=== PATIENT | female | born 1980 | race Caucasian/White ===

== ENCOUNTER 2023-09-16 14:55 | Outpatient (NON) | payer MEDICARE, SELFPAY ==
[2023-09-16 15:21] LABS: Basophils Absolute Auto 0.04 K/mm3 (0.00-0.10); Basophils Percent Auto 0.9 % (0.0-1.0); Eosinophils Absolute Auto 0.35 K/mm3 (0.02-0.50); Eosinophils Percent Auto 7.6 % (1.0-6.0); Hematocrit 45.2 % (35.0-49.0); Hemoglobin 15.1 g/dL (12.0-15.0); Immature Granulocyte Absolute 0.01 K/mm3 (0.00-0.00); Immature Granulocyte Percent A 0.2 % (0.0-0.0); Lymphocytes Absolute Auto 0.21 K/mm3 (1.10-4.50); Lymphocytes Percent Auto 4.6 % (18.0-42.0); Mean Corpuscular HGB Conc 33.4 g/dL (32.0-36.0); Mean Corpuscular Hemoglobin 29.9 pg (27.0-31.0); Mean Corpuscular Volume 89.5 fL (78.0-102.0); Mean Platelet Volume 10.9 fl (9.2-11.8); Monocytes Absolute Auto 0.48 K/mm3 (0.10-0.90); Monocytes Percent Auto 10.4 % (2.0-11.0); Neutrophils Absolute Auto 3.5 K/mm3 (1.7-7.2); Neutrophils Percent Auto 76.3 % (50.0-70.0); Platelet Count Result 214 K/mm3 (150-420); Red Blood Count 5.05 M/mm3 (4.20-5.40); Red Cell Distribution Width 13.5 % (11.6-14.4); White Blood Count 4.6 K/mm3 (4.8-10.8)
[2023-09-16 15:34] LABS: Alanine Aminotransferase 13 U/L (14-59); Albumin Level 3.7 g/dL (3.4-5.0); Alkaline Phosphatase 95 U/L (46-116); Anion Gap 11 mmol/L (8-16); Aspartate Amino Transferase < 10 U/L (15-37); Bilirubin,Total 0.2 mg/dL (0.00-1.00); Blood Urea Nitrogen 15 mg/dL (7-18); Calcium 9.2 mg/dL (8.5-10.1); Carbon Dioxide 26 mmol/L (21-32); Chloride 110 mmol/L (98-108); Estimated Glomerular Filt Rate > 60; Glucose 71 mg/dL (70-99); Osmolality Calculated 302 mOsm/kg (285-295); Potassium 3.9 mmol/L (3.5-5.1); Sodium 147 mmol/L (136-145); Total Protein 6.3 g/dL (6.4-8.2)
== END 2023-09-16 14:56 | disposition home or self-care (01) ==
LOC: CHSLAB 15:02
DX: Z79.899 Other long term (current) drug therapy (principal)
CPT/HCPCS: 36415; 80053; 84443; 85025

== ENCOUNTER 2024-02-11 15:28 | Outpatient (NON) | payer MEDICARE, SELFPAY ==
[2024-02-11 16:09] LABS: Basophils Absolute Auto 0.07 K/mm3 (0.00-0.10); Basophils Percent Auto 1.7 % (0.0-1.0); Eosinophils Absolute Auto 0.31 K/mm3 (0.02-0.50); Eosinophils Percent Auto 7.3 % (1.0-6.0); Hematocrit 44.9 % (35.0-49.0); Hemoglobin 14.9 g/dL (12.0-15.0); Immature Granulocyte Absolute 0.02 K/mm3 (0.00-0.00); Immature Granulocyte Percent A 0.5 % (0.0-0.0); Lymphocytes Absolute Auto 0.73 K/mm3 (1.10-4.50); Lymphocytes Percent Auto 17.3 % (18.0-42.0); Mean Corpuscular HGB Conc 33.2 g/dL (32-36); Mean Corpuscular Volume 87.5 fL (78.0-102.0); Mean Platelet Volume 10.9 fl (9.2-11.8); Monocytes Absolute Auto 0.55 K/mm3 (0.10-0.90); Neutrophils Absolute Auto 2.55 K/mm3 (1.70-7.20); Neutrophils Percent Auto 60.2 % (50.0-70.0); Platelet Count Result 216 K/mm3 (150-420); Red Blood Count 5.13 M/mm3 (4.20-5.40); Red Cell Distribution Width 12.7 % (11.6-14.4); White Blood Count 4.2 K/mm3 (4.8-10.8)
[2024-02-11 16:31] LABS: Alanine Aminotransferase 26 U/L (14-59); Albumin Level 3.9 g/dL (3.4-5.0); Alkaline Phosphatase 91 U/L (46-116); Anion Gap 10 mmol/L (8-16); Aspartate Amino Transferase 10 U/L (15-37); Bilirubin,Total 0.3 mg/dL (0.00-1.00); Blood Urea Nitrogen 12 mg/dL (7-18); Calcium 8.7 mg/dL (8.5-10.1); Carbon Dioxide 28 mmol/L (21-32); Chloride 106 mmol/L (98-108); Estimated Glomerular Filt Rate > 60; Glucose 68 mg/dL (70-99); Osmolality Calculated 295 mOsm/kg (285-295); Potassium 4.4 mmol/L (3.5-5.1); Sodium 144 mmol/L (136-145); Thyroid Stimulating Hormone 1.26 uIU/mL (0.36-3.74); Total Protein 6.4 g/dL (6.4-8.2)
== END 2024-02-11 15:29 | disposition home or self-care (01) ==
LOC: CHSLAB 15:34
DX: Z79.899 Other long term (current) drug therapy (principal)
CPT/HCPCS: 36415; 80053; 84443; 85025

== ENCOUNTER 2024-04-08 11:00 | Outpatient (NON) | payer MEDICARE, SELFPAY ==
[2024-04-08 11:28] LABS: Hematocrit 47.7 % (35.0-49.0); Hemoglobin 15.4 g/dL (12.0-15.0); Mean Corpuscular HGB Conc 32.3 g/dL (32-36); Mean Corpuscular Hemoglobin 28.3 pg (27.0-31.0); Mean Corpuscular Volume 87.5 fL (78.0-102.0); Mean Platelet Volume 10.9 fl (9.2-11.8); Platelet Count Result 238 K/mm3 (150-420); Red Blood Count 5.45 M/mm3 (4.20-5.40); Red Cell Distribution Width 13.5 % (11.6-14.4); White Blood Count 5.4 K/mm3 (4.8-10.8)
[2024-04-08 11:55] LABS: Alanine Aminotransferase 26 U/L (14-59); Albumin Level 3.8 g/dL (3.4-5.0); Alkaline Phosphatase 82 U/L (46-116); Anion Gap 12 mmol/L (4-12); Aspartate Amino Transferase 19 U/L (15-37); Bilirubin,Total 0.2 mg/dL (0.00-1.00); Blood Urea Nitrogen 11 mg/dL (7-18); Calcium 8.6 mg/dL (8.5-10.1); Carbon Dioxide 22 mmol/L (21-32); Chloride 104 mmol/L (98-108); Estimated Glomerular Filt Rate > 60; Glucose 88 mg/dL (70-99); Osmolality Calculated 284 mOsm/kg (285-295); Sodium 138 mmol/L (136-145); Thyroid Stimulating Hormone 2.21 uIU/mL (0.36-3.74); Total Protein 6.4 g/dL (6.4-8.2)
[2024-04-08 12:00] LABS: Band Neutrophils Percent 0 % (0-6); Basophils Absolute Manual 0.05 K/mm3 (0-0.1); Basophils Percent Manual 1 % (0-1); Eosinophils Absolute Manual 0.81 K/mm3 (0.02-0.50); Eosinophils Percent Manual 15 % (1-6); Lymphocytes Percent Manual 13 % (18-44); Monocytes Absolute Manual 0.64 K/mm3 (0.1-0.90); Monocytes Percent Manual 12 % (3-9); Neutrophils Absolute Manual 3.18 K/mm3 (1.7-7.2); Neutrophils Percent Manual 59 % (46-73); Platelet Estimate Adequate (Adequate); Total Cells Counted 100
== END 2024-04-08 11:01 | disposition home or self-care (01) ==
LOC: CHSLAB 11:03
DX: Z79.899 Other long term (current) drug therapy (principal)
CPT/HCPCS: 36415; 80053; 84443; 85025

== ENCOUNTER 2024-06-09 09:57 | Outpatient (NON) | payer MEDICARE, SELFPAY ==
[2024-06-09 10:12] LABS: Basophils Absolute Auto 0.04 K/mm3 (0.00-0.10); Basophils Percent Auto 0.8 % (0.0-1.0); Eosinophils Absolute Auto 0.22 K/mm3 (0.02-0.50); Eosinophils Percent Auto 4.4 % (1.0-6.0); Hematocrit 44.5 % (35.0-49.0); Hemoglobin 15.1 g/dL (12.0-15.0); Immature Granulocyte Absolute 0.02 K/mm3 (0.00-0.00); Immature Granulocyte Percent A 0.4 % (0.0-0.0); Lymphocytes Absolute Auto 1.22 K/mm3 (1.10-4.50); Lymphocytes Percent Auto 24.3 % (18.0-42.0); Mean Corpuscular HGB Conc 33.9 g/dL (32-36); Mean Corpuscular Hemoglobin 29.6 pg (27.0-31.0); Mean Corpuscular Volume 87.3 fL (78.0-102.0); Monocytes Absolute Auto 0.42 K/mm3 (0.10-0.90); Monocytes Percent Auto 8.3 % (2.0-11.0); Neutrophils Absolute Auto 3.11 K/mm3 (1.70-7.20); Neutrophils Percent Auto 61.8 % (50.0-70.0); Platelet Count Result 219 K/mm3 (150-420); Red Cell Distribution Width 13.7 % (11.6-14.4)
[2024-06-09 10:40] LABS: Alanine Aminotransferase 37 U/L (14-59); Albumin Level 3.6 g/dL (3.4-5.0); Alkaline Phosphatase 82 U/L (46-116); Anion Gap 8 mmol/L (4-12); Aspartate Amino Transferase 14 U/L (15-37); Bilirubin,Total 0.3 mg/dL (0.00-1.00); Blood Urea Nitrogen 10 mg/dL (7-18); Calcium 8.5 mg/dL (8.5-10.1); Carbon Dioxide 25 mmol/L (21-32); Chloride 107 mmol/L (98-108); Estimated Glomerular Filt Rate > 60; Glucose 82 mg/dL (70-99); Osmolality Calculated 288 mOsm/kg (285-295); Potassium 4.1 mmol/L (3.5-5.1); Sodium 140 mmol/L (136-145); Thyroid Stimulating Hormone 1.58 uIU/mL (0.36-3.74); Total Protein 6.2 g/dL (6.4-8.2)
== END 2024-06-09 09:58 | disposition home or self-care (01) ==
LOC: CHSLAB 10:01
DX: Z79.899 Other long term (current) drug therapy (principal)
CPT/HCPCS: 80053; 84443; 85025

== ENCOUNTER 2025-06-27 12:58 | Outpatient (NON) | payer MEDICARE, SELFPAY ==
--- OUTSIDE RECORDS SUMMARY | 2025-06-27 13:07 | XMS_ITS | Clinical Summary ---
Author Organization [facility] Address [address] [place] [address] Phone Care Team Providers Care Medical Records Analyst Name Role Phone Ervin Uribe MD Primary Care Provider Allergies No known active allergies Medications gabapentin (NEURONTIN) 100 mg capsule Take 200 mg by mouth 3 times daily. Active primidone (MYSOLINE) 50 mg tablet Take 100 mg by mouth every 12 hours. Active buPROPion HCL (WELLBUTRIN SR) 150 mg Sustained Release 12 hour tablet Take 150 mg by mouth 2 times daily. Active sertraline (ZOLOFT) 100 mg tablet Take 200 mg by mouth daily. Active amantadine HCL (SYMMETREL) 100 mg Capsule Take 100 mg by mouth 2 times daily. Active tolterodine (DETROL) 2 mg tablet Take 2 mg by mouth 2 times daily. Active baclofen (LIORESAL) 20 mg tablet Take 20 mg by mouth 4 times daily. Active apixaban (Eliquis) 2.5 mg tablet Take 2.5 mg by mouth 2 times daily. Active tiZANidine (ZANAFLEX) 2 mg Tablet Take 2 mg by mouth 3 times daily. Active acetaminophen (TYLENOL) 325 mg tablet Take 2 Tablets (650 mg) by mouth every 6 hours as needed for Other (See Comment) (See admin instructions ). 08/10/2024 Active Cholecalciferol , Vitamin D3, 50 mcg (2,000 unit) Capsule Take 4,000 Units by mouth daily. 08/10/2024 Active Active Problems Problem Noted Date Diagnosed Date Chest pain due to myocardial ischemia 08/09/2024 Elevated troponin due to non ischemic myocardial injury due to tachyarrhythmia 08/09/2024 SVT (supraventricular tachycardia) 08/09/2024 MS (multiple sclerosis) 08/09/2024 Wheelchair dependence 08/09/2024 Anticoagulant long-term use 08/09/2024 History of venous thromboembolism 08/09/2024 Encounters Date Type Department Care Team Description 06/08/2025 External Device Data [facility] ABSTRACTION Provider, Abstract 06/07/2025 External Device Data [facility] ABSTRACTION Provider, Abstract 05/10/2025 External Device Data [facility] ABSTRACTION Provider, Abstract 04/26/2025 External Device Data [facility] ABSTRACTION Provider, Abstract 04/14/2025 External Device Data [facility] ABSTRACTION Provider, Abstract 04/14/2025 External Device Data [facility]STRACTION Provider, Abstract 04/14/2025 External Device Data [facility]CTION Provider, Abstract 04/13/2025 External Device Data [facility]STRACTION Provider, Abstract 04/12/2025 External Device Data [facility] ABSTRACTION Provider, Abstract from Last 3 Months Family History Medical History Relation Name Comments No Known Problems Brother No Known Problems Father No Known Problems Mother Relation Name Status Comments Brother Alive Father Alive Mother Alive Social History Tobacco Use Types Packs/Day Years Used Date Smoking Tobacco: Unknown Tobacco Cessation:Counseling Given: Not Answered Alcohol Use Standard Drinks/Week Comments Never 0 (1 standard drink = 0.6 oz pur e alcohol) Comments No Sex and Gender Information Value Date Recorded Sex Assigned at Not on file Legal Sex Female 10:19 PM CDT Gender Identity Not on file Sexual Orientation Not on file Last Filed Vital Signs Vital Sign Reading Time Taken Comments Blood Pressure 100/54 08/10/2024 11:47 AM CDT Pulse 88 08/10/2024 11:47 AM CDT Temperature 36.7 C (98 F) 08/10/2024 11:47 AM CDT Respiratory Rate 18 08/10/2024 11:47 AM CDT Oxygen Saturation 100% 08/10/2024 11:47 AM CDT Inhaled Oxygen Concentration - - Weight 63.1 kg (139 lb 1.6 oz) 08/10/2024 5:01 A M CDT Height 165.1 cm (5' 5) 08/09/2024 3:39 AM CDT Body Mass Index 23.15 08/09/2024 3:39 AM CDT Plan of Treatment Health Maintenance Due Date Last Done Comments HPV VACCINES (1 - 3-dose series) 1995 DTAP/TDAP/TD VACCINES (1 - Tdap) 1999 HEPATITIS B VACCINES (1 of 3 - 19+ 3-dose series) 1999 HPV/Cotest (21-29) 2001 CERVICAL CANCER SCREENING 2010 HPV/Cotest (30-65) 2010 PAP SMEAR 2010 BREAST CANCER SCREENING 04/08/2024 04/08/20 23, 04/08/2023, 02/01/2022, Additional history exists COLORECTAL SCREENING 2025 Colorectal Cancer Screening 2025 FIT-DNA Q 3 years 2025 FIT/FOBT Q 1 year 2025 Flex Sig/CT Colonography Q 5 years 2025 INFLUENZA VACCINE (#1) 2025 Insurance MEDICARE PART A AND B MEDICAID [place] Advance Directives For more information, please contact: [phone] * Full Code (Latest Code Status on File) Date Activated Date Inactivated Comments 08/09/2024 7:14 AM 08/10/2024 2:59 PM Care Teams Medical Records Analyst Relationship Specialty Start Date End Date Ervin Uribe MD [address] [place] [phone] PCP - General Family Practice 08/10/24
--- OUTSIDE RECORDS SUMMARY | 2025-06-27 13:07 | XMS_ITS | Encounter Summary ---
Author Organization [facility] Address [address] [place] [address] Care Team Providers Care Crayon Sorting Machine Feeder Name Role Phone Ervin Uribe MD Primary Care Provider Reason for Visit * Reason Onset Date Comments SVT, possible Nstemi vs. tro p leak, trop elevated 08/09/[address] @ [facility] Encounter Details Date Type Department Care Team (Late st Contact Info) Description 08/09/2024 Telephone [facility] Admitting [address] [place] [address] [place] [id number] [facility] [address] [place] [address] SVT, possible Nstemi vs. trop leak, trop elevated (SECURE CHAT @ [facility]) Social History Tobacco Use Types Packs/Day Years Used Date Smoking Tobacco: Unknown Alcohol Use Standard Drinks/Week Comments Never 0 (1 standard drink = 0.6 oz pur e alcohol) Comments No Sex and Gender Information Value Date Recorded Sex Assigned at Not on file Legal Sex Female 10:19 PM CDT Gender Identity Not on file Sexual Orientation Not on file documented as of this encounter Plan of Treatment Not on file documented as of this encounter Visit Diagnoses Not on filedocumented in this encounter Care Teams Crayon Sorting Machine Feeder Relationship Specialty Start Date End Date Ervin Uribe MD [address] [place] [id number] PCP - General Family Practice 08/10/24 documented as of this encounter
[2025-06-27 13:09] LABS: Add Urine Microscopic? NO; Appearance Urine Clear (Clear); Glucose Urine UA Negative (Negative); Hematocrit 46.2 % (35.0-49.0); Hemoglobin 15.4 g/dL (12.0-15.0); Immature Granulocyte Percent A 0.2 % (0.0-0.0); Leukocyte Esterase Ur Negative LEU/UL (Negative); Lymphocytes Absolute Auto 1.26 K/mm3 (1.10-4.50); Mean Corpuscular HGB Conc 33.3 g/dL (32-36); Mean Corpuscular Hemoglobin 28.9 pg (27.0-31.0); Mean Corpuscular Volume 86.8 fL (78.0-102.0); Nitrate Urine Negative (Negative); Nucleated Red Blood Cells Absolute Auto 0.00 K/mm3 (0.00-0.00); Nucleated Red Blood Cells Perc 0.0 % (0-0.0); Platelet Count Result 191 K/mm3 (150-420); Red Blood Count 5.32 M/mm3 (4.20-5.40); Specific Grav Ur 1.010 (1.010-1.020); White Blood Count 4.5 K/mm3 (4.8-10.8)
[2025-06-27 13:24] LABS: Alanine Aminotransferase 22 U/L (6-35); Albumin Level 4.3 g/dL (3.5-5.1); Alkaline Phosphatase 65 U/L (38-126); Anion Gap 6 mmol/L (4-12); Aspartate Amino Transferase 28 U/L (14-36); Bilirubin,Total 0.4 mg/dL (0.2-1.3); Blood Urea Nitrogen 11 mg/dL (7-17); Calcium 8.8 mg/dL (8.4-10.2); Carbon Dioxide 27 mmol/L (22-30); Chloride 108 mmol/L (98-107); Estimated Glomerular Filt Rate > 60; Glucose 82 mg/dL (65-110); Osmolality Calculated 290 mOsm/kg (285-295); Potassium 4.2 mmol/L (3.4-5.0); Sodium 141 mmol/L (137-145); Total Protein 6.5 g/dL (6.3-8.2)
[2025-06-27 13:55] LABS: Thyroid Stimulating Hormone < 0.015 uIU/mL (0.465-4.680)
== END 2025-06-27 12:59 | disposition home or self-care (01) ==
LOC: CHSLAB 12:59
PROVIDERS: Visit Provider Psychiatry & Neurology Neurology
DX: G35 Multiple sclerosis (principal); Z79.899 Other long term (current) drug therapy
CPT/HCPCS: 36415; 80053; 81003; 84443; 85025